=== PATIENT | female | born 1955 | race Caucasian/White ===

== ENCOUNTER 2017-03-06 18:52 | Emergency (ER) | payer OTHER ==
[2017-03-06] MEDS ORDERED: IPRATROPIUM-ALBUTEROL 3 ML NEB INHALATION STA (19:34)
--- NOTE | 2017-03-06 19:34 | ED ---
General Adult HPI - General Chief complaint: Anxiety Stated complaint: Anxiety Time Seen by Provider: 03/06/17 19:19 Source: patient Mode of arrival: EMS Limitations: no limitations - History of Present Illness Initial comments: The patient is a 61-year-old female who presents to the ED with a chief complaint of shortness of breath. Patient states that she's been having numerous episodes of shortness of breath over the course the past 2 days. Patient states that these episodes have been random in timing. She states that they have been relatively persistent. Patient denies any fevers or chills but states that she has felt somewhat clammy. Patient denies any cough. She does note that she has an extensive history of COPD. She smokes on a daily basis. Patient is not been hospitalized within the past year for exacerbation of COPD. Patient denies any history of PE or DVT. Patient denies any history of cardiac disease. She denies any chest pain. She denies any sick contacts. Denies any international travel or long trips. Patient states that she's been using her albuterol inhaler occasionally while at home, though this does not seem to improve her symptoms. The patient states that aside from her albuterol inhaler, the only medications that she takes are Lexapro and Keflex. She states that she takes the Keflex because she gets frequent skin infections. - Related Data Home Medications Medication Instructions Recorded Confirmed Cephalexin [Keflex] 500 mg PO DAILY PRN 03/06/17 03/06/17 Escitalopram [Lexapro] 5 mg PO DAILY 03/06/17 03/06/17 Previous Rx's Medication Instructions Recorded Azithromycin [Zithromax] 500 mg PO DAILY 5 Days 03/06/17 predniSONE 40 mg PO DAILY #10 tab 03/06/17 Allergies Allergy/AdvReac Type Severity Reaction Status Date / Time iodine Allergy Dyspnea Verified 03/06/17 19:13 aspirin AdvReac Nausea & Verified 03/06/17 19:14 Vomiting & Diarrhea meperidine [From Demerol] AdvReac Nausea & Verified 03/06/17 19:14 Vomiting morphine AdvReac Nausea & Verified 03/06/17 19:14 Vomiting Review of Systems ROS Statement: Those systems with pertinent positive or pertinent negative responses have been documented in the HPI. ROS Other: All systems not noted in ROS Statement are negative. Constitutional: Denies: fever, chills, weakness Eyes: Denies: eye pain ENT: Denies: ear pain, throat pain, dental pain, hearing loss Respiratory: Reports: dyspnea, wheezes. Denies: cough, hemoptysis, stridor Cardiovascular: Denies: chest pain, palpitations, dyspnea on exertion Endocrine: Reports: fatigue Gastrointestinal: Denies: abdominal pain, nausea, vomiting, diarrhea, constipation, melena Genitourinary: Denies: urgency, dysuria, frequency, hematuria Musculoskeletal: Denies: back pain Skin: Denies: rash Neurological: Denies: headache, weakness, numbness, paresthesias, confusion Psychiatric: Denies: anxiety, depression Past Medical History Past Medical History: Asthma History of Any Multi-Drug Resistant Organisms: None Reported Past Surgical History: Section, Joint Replacement Additional Past Surgical History / Comment(s): total hip, Smoking Status: Current every day smoker Past Alcohol Use History: None Reported Past Drug Use History: None Reported General Exam Limitations: no limitations General appearance: alert, in no apparent distress Head exam: Present: atraumatic, normocephalic Eye exam: Present: normal appearance, PERRL, EOMI Pupils: Present: normal accommodation ENT exam: Present: normal exam, normal oropharynx Neck exam: Present: normal inspection, full ROM. Absent: tenderness Respiratory exam: Present: wheezes (trace bilateral wheezes), decreased breath sounds (throughout all santo). Absent: respiratory distress, rales, rhonchi, stridor, chest wall tenderness, accessory muscle use Cardiovascular Exam: Present: regular rate, normal rhythm. Absent: systolic murmur, diastolic murmur, rubs, gallop GI/Abdominal exam: Present: soft. Absent: distended, tenderness Extremities exam: Present: normal inspection, full ROM, normal capillary refill. Absent: pedal edema Neurological exam: Present: alert, oriented X3 Psychiatric exam: Present: normal affect, normal mood Skin exam: Present: warm, dry, intact Course Vital Signs 03/06/17 03/06/17 03/06/17 19:01 20:02 20:10 Temperature 98.0 F Pulse Rate 75 80 80 Respiratory 16 Rate Blood Pressure 136/73 O2 Sat by Pulse 100 Oximetry 03/06/17 22:25 Temperature 98.5 F Pulse Rate 78 Respiratory 20 Rate Blood Pressure 136/78 O2 Sat by Pulse 97 Oximetry EKG Findings - EKG Comments: EKG Findings:: EKG demonstrates normal sinus rhythm with a rate is 62. There are no concerning ST-T changes. The SD and QRS intervals are within normal limits. Medical Decision Making - Medical Decision Making Patient is a 61-year-old female who presents to the ED with a chief complaint of shortness of breath. Patient states that her shortness of breath is periodic in nature. She denies that it is associated with fever or chills. Patient does have an underlying history of COPD. She uses an albuterol inhaler to help with that. Patient also has history of anxiety for which she is on Lexapro chronically. Patient denies any history of DVT or PE. Patient denies any history of swelling of the lower extremities. Patient denies any history of CHF. Denies any history of cardiac disease. Patient has no history of cardiac risk factors including hypertension, hyperlipidemia, diabetes. HEART Score=3 (1 for suspicion, 1 for age, 1 for risk factors). Provide patient with DuoNeb breathing treatment. Check d-dimer to rule out possibility of PE. Chest x-ray. CBC, BMP, Mag. 9:16 PM Updated patient and her significant other of overall findings, including negative d-dimer. Chest x-ray demonstrates evidence of emphysema. Counseled patient that she is suffering from COPD. The patient has been provided with dose of prednisone as well as azithromycin prior to discharge. Will be discharged on Prednisone 40mg PO x 5 days and Azithromycin 500mg qDay x 5 days. Counseled patient to use her albuterol inhaler, 2 puffs every 6 hours when necessary for chest tightness or shortness of breath. I have answered all of the patient's questions to her satisfaction. Encouraged her to follow up with her primary care practitioner for further evaluation including possible PFTs and prescription for nebulizer. I have counseled the patient on smoking cessation. Encouraged her to return to the ED should her symptoms worsen. - Lab Data Result diagrams: 03/06/17 20:00 03/06/17 20:00 Lab Results 03/06/17 03/06/17 03/06/17 Range/Units 20:00 20:00 20:00 WBC 7.0 (3.8-10.6) k/uL RBC 4.67 (3.80-5.40) m/uL Hgb 13.7 (11.4-16.0) gm/dL Hct 41.6 (34.0-46.0) % MCV 89.0 (80.0-100.0) fL MCH 29.3 (25.0-35.0) pg MCHC 32.9 (31.0-37.0) g/dL RDW 12.7 (11.5-15.5) % Plt Count 248 (150-450) k/uL Neutrophils % 61 % Lymphocytes % 31 % Monocytes % 4 % Eosinophils % 1 % Basophils % 0 % Neutrophils # 4.3 (1.3-7.7) k/uL Lymphocytes # 2.2 (1.0-4.8) k/uL Monocytes # 0.3 (0-1.0) k/uL Eosinophils # 0.1 (0-0.7) k/uL Basophils # 0.0 (0-0.2) k/uL D-Dimer 0.58 (<0.60) mg/L FEU Sodium 139 (137-145) mmol/L Potassium 4.4 (3.5-5.1) mmol/L Chloride 104 (98-107) mmol/L Carbon Dioxide 28 (22-30) mmol/L Anion Gap 7 mmol/L BUN 17 (7-17) mg/dL Creatinine 0.69 (0.52-1.04) mg/dL Est GFR (MDRD) Af Amer >60 (>60 ml/min/1.73 sqM) Est GFR (MDRD) Non-Af >60 (>60 ml/min/1.73 sqM) Glucose 102 H (74-99) mg/dL Calcium 9.9 (8.4-10.2) mg/dL Magnesium 2.1 (1.6-2.3) mg/dL Troponin I (0.000-0.034) ng/mL NT-Pro-B Natriuret Pep pg/mL Urine Color Urine Appearance (Clear) Urine pH (5.0-8.0) Ur Specific [place] (1.001-1.035) Urine Protein (Negative) Urine Glucose (UA) (Negative) Urine Ketones (Negative) Urine Blood (Negative) Urine Nitrite (Negative) Urine Bilirubin (Negative) Urine Urobilinogen (<2.0) mg/dL Ur Leukocyte Esterase (Negative) 03/06/17 03/06/17 03/06/17 Range/Units 20:00 20:00 20:00 WBC (3.8-10.6) k/uL RBC (3.80-5.40) m/uL Hgb (11.4-16.0) gm/dL Hct (34.0-46.0) % MCV (80.0-100.0) fL MCH (25.0-35.0) pg MCHC (31.0-37.0) g/dL RDW (11.5-15.5) % Plt Count (150-450) k/uL Neutrophils % % Lymphocytes % % Monocytes % % Eosinophils % % Basophils % % Neutrophils # (1.3-7.7) k/uL Lymphocytes # (1.0-4.8) k/uL Monocytes # (0-1.0) k/uL Eosinophils # (0-0.7) k/uL Basophils # (0-0.2) k/uL D-Dimer (<0.60) mg/L FEU Sodium (137-145) mmol/L Potassium (3.5-5.1) mmol/L Chloride (98-107) mmol/L Carbon Dioxide (22-30) mmol/L Anion Gap mmol/L BUN (7-17) mg/dL Creatinine (0.52-1.04) mg/dL Est GFR (MDRD) Af Amer (>60 ml/min/1.73 sqM) Est GFR (MDRD) Non-Af (>60 ml/min/1.73 sqM) Glucose (74-99) mg/dL Calcium (8.4-10.2) mg/dL Magnesium (1.6-2.3) mg/dL Troponin I <0.012 (0.000-0.034) ng/mL NT-Pro-B Natriuret Pep 158 pg/mL Urine Color Colorless Urine Appearance Clear (Clear) Urine pH 5.5 (5.0-8.0) Ur Specific [place] 1.003 (1.001-1.035) Urine Protein Negative (Negative) Urine Glucose (UA) Negative (Negative) Urine Ketones Negative (Negative) Urine Blood Negative (Negative) Urine Nitrite Negative (Negative) Urine Bilirubin Negative (Negative) Urine Urobilinogen <2.0 (<2.0) mg/dL Ur Leukocyte Esterase Negative (Negative) Disposition Clinical Impression: Acute exacerbation of chronic obstructive pulmonary disease (COPD) Disposition: HOME SELF-CARE Instructions: Emphysema (ED), COPD (Chronic Obstructive Pulmonary Disease) (ED) Additional Instructions: Please return to the ED should you have worsening shortness of breath while at home despite the medication provided to you today. Please use your Albuterol inhaler every 6 hours as needed should you have shortness of breath. Prescriptions: Azithromycin [Zithromax] 500 mg PO DAILY 5 Days predniSONE 40 mg PO DAILY #10 tab Referrals: Harish Zavaleta MD [Primary Care Provider] - 03/13/17 (Please follow up with Dr. Zavaleta within the next week to ensure that your symptoms are improving and to see whether you might be able to get a prescription for a nebulizer to use at home) Time of Disposition: 21:16
[2017-03-06 20:15] LABS: Appearance,Urine Clear (Clear); Bilirubin,Urine Negative (Negative); Glucose,Urine (UA) Negative (Negative); Ketones,Urine Negative (Negative); Leukocyte Esterase,Urine Negative (Negative); Nitrite,Urine Negative (Negative); PH, Urine 5.5 (5.0-8.0); Protein,Urine Negative (Negative); Specific Gravity,Urine 1.003 (1.001-1.035); UA Billing (MACRO vs. MICRO) CHEM; Urobilinogen,Urine <2.0 mg/dL (<2.0)
[2017-03-06 20:16] LABS: Basophils % (A) 0 %; CH 29.5; CHCM 33.2; Eosinophils # (A) 0.1 k/uL (0-0.7); Eosinophils % (A) 1 %; HCT 41.6 % (34.0-46.0); HDW 2.32; HGB 13.7 gm/dL (11.4-16.0); Luc # (Auto) 0.15; Luc % (Auto) 2; Lymphocytes # (A) 2.2 k/uL (1.0-4.8); Lymphocytes % (A) 31 %; MCH 29.3 pg (25.0-35.0); MCHC 32.9 g/dL (31.0-37.0); Mean Platelet Volume 7.2; Monocytes # (A) 0.3 k/uL (0-1.0); Monocytes % (A) 4 %; Neutrophils # (A) 4.3 k/uL (1.3-7.7); Neutrophils % (A) 61 %; RBC 4.67 m/uL (3.80-5.40); RDW 12.7 % (11.5-15.5); WBC (Perox) 7.11
--- NOTE | 2017-03-06 20:18 | XR ---
EXAMINATION TYPE: XR chest 2V DATE OF EXAM: 03/06/2017 7:50 PM COMPARISON: NONE HISTORY: History of asthma presents with shortness of breath. TECHNIQUE: Frontal and lateral views of the chest are obtained. FINDINGS: Chronic emphysematous change with upper lung scarring is felt present. There is no focal a ir space opacity, pleural effusion, or pneumothorax seen. The cardiac silhouette size is within norm al limits. The osseous structures are somewhat demineralized. IMPRESSION: Chronic emphysematous change without suspicious acute pulmonary process.
[2017-03-06 20:36] LABS: Anion Gap 7 mmol/L; Blood Urea Nitrogen 17 mg/dL (7-17); Calcium 9.9 mg/dL (8.4-10.2); Carbon Dioxide 28 mmol/L (22-30); Chloride 104 mmol/L (98-107); Glucose 102 mg/dL (74-99); Magnesium 2.1 mg/dL (1.6-2.3); Non-African American GFR(MDRD) >60 (>60 ml/min/1.73 sqM); Potassium 4.4 mmol/L (3.5-5.1); Sodium 139 mmol/L (137-145)
[2017-03-06] MEDS ORDERED: predniSONE 20 MG TAB PO STA (20:53)
[2017-03-06] MEDS ORDERED: AZITHROMYCIN 500 MG TAB PO STA (20:53)
[2017-03-06 22:26] VITALS: BP 136/78; PULSE 78; RESP 20; TEMP 98.5
== END 2017-03-06 22:26 | disposition home or self-care (01) ==
LOC: EC 18:52
DX: J44.1 Chronic obstructive pulmonary disease with (acute) exacerbation (principal); F41.9 Anxiety disorder, unspecified
CPT/HCPCS: 36415; 94640; 93005; 85379; 83880; 80048; 83735; 84484; 85025; 81003; 71020; 99284; J7512

== ENCOUNTER → 2017-06-13 | Outpatient (CLI) | payer OTHER ==
--- NOTE | 2017-06-13 15:05 | CT ---
EXAMINATION TYPE: CT brain wo con DATE OF EXAM: 06/13/2017 COMPARISON: NONE HISTORY: Visual disturbance x2 weeks. CT DLP: 1058 mGycm Automated exposure control for dose reduction was used. FINDINGS: Ventricular system is midline without displacement. Calvarium intact. No acute hemorrhage or mass effect. IMPRESSION: NO ACUTE PROCESS IF SYMPTOMS THAN MRI WOULD BE RECOMMENDED..
--- NOTE | 2017-06-13 15:44 | US ---
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 May 03-- double vision in right eye, no htn EXAM MEASUREMENTS: RIGHT: Peak Systolic Velocity (PSV) cm/sec ----- Right CCA: 82.0 ----- Right ICA: 82.3 ----- Right ECA: 84.9 ICA/CCA ratio: 1.0 RIGHT: End Diastole cm/sec ----- Right CCA: 29.2 ----- Right ICA: 30.7 ----- Right ECA: 15.0 LEFT: Peak Systolic Velocity (PSV) cm/sec ----- Left CCA: 89.7 ----- Left ICA: 81.2 ----- Left ECA: 65.8 ICA/CCA ratio: 0.9 LEFT: End Diastole cm/sec ----- Left CCA: 31.4 ----- Left ICA: 35.1 ----- Left ECA: 15.3 VERTEBRALS (direction of flow): Right Vertebral: Antegrade Left Vertebral: Antegrade No significant stenosis or elevated velocities. Plaque seen in anterior left bulb. Bilateral wall th ickening. Grayscale, color Doppler, spectral Doppler imaging the carotid arteries. IMPRESSION: No hemodynamic significant stenosis of the proximal internal carotid arteries bilaterall y by Doppler criteria, an indirect measurement of carotid stenosis
== END | disposition home or self-care (01) ==
LOC: RADCTMAIN 14:35
PROVIDERS: ATTEND Family Medicine
DX: I63.9 Cerebral infarction, unspecified (principal); H49.20 Sixth [abducent] nerve palsy, unspecified eye
CPT/HCPCS: 70450; 93880

== ENCOUNTER 2018-08-22 06:03 | Day surgery (SDC) | payer OTHER ==
[2018-08-20 14:05] VITALS: BMI 19.3
[2018-08-22] MEDS ORDERED: DEXAMETHASONE SOD PHOSPHATE 10 MG/ML 1 ML VIAL IV ONE (06:18)
[2018-08-22] MEDS ORDERED: ONDANSETRON 4 MG/2 ML VIAL IVP ONE (06:18)
[2018-08-22] MEDS ORDERED: SCOPOLAMINE 1.5MG/72HR PATCH TRANSDERM ONE (06:18)
[2018-08-22] MEDS ORDERED: LIDOCAINE 1% 20 ML VIAL (10MG/ML) FOR IV START INTRADERMA PRN (06:18)
[2018-08-22] MEDS ORDERED: LACTATED RINGERS 1,000 ML IV SCH (06:30)
[2018-08-22 07:12] VITALS: TEMP 97.8
[2018-08-22] MEDS ORDERED: LIDOCAINE 1% INJ 10MG/ML (20 ML MDV) ONE (07:45)
[2018-08-22] MEDS ORDERED: PROPOFOL 10 MG/ML 20 ML VIAL IV ONE (07:45)
--- NOTE | 2018-08-22 07:47 | P.GSHP ---
History of Present Illness H&P Date: 08/22/18 Chief Complaint: Constipation This a 62-year-old female referred from Dr. Zavaleta. Patient's had complaints of constipation. She presents today for colonoscopy. Past Medical History Past Medical History: Asthma History of Any Multi-Drug Resistant Organisms: None Reported Past Surgical History: Appendectomy, Section, Joint Replacement Additional Past Surgical History / Comment(s): bilateral total hip, ganglion cysts from wrist; benign tumor outside uterus removed; Past Anesthesia/Blood Transfusion Reactions: Postoperative Nausea & Vomiting ( PONV) Smoking Status: Current every day smoker - Past Family History Mother Family Medical History: No Reported History Medications and Allergies Home Medications Medication Instructions Recorded Confirmed Type Escitalopram [Lexapro] 5 mg PO DAILY 08/20/18 08/22/18 History Nicotine 21Mg/24Hr Patch [Habitrol 1 each TRANSDERM DAILY 08/20/18 08/22/18 History 21Mg/24Hr Patch] Albuterol Inhaler [Ventolin Hfa 1 - 2 puff INHALATION RT-Q6H PRN 08/22/18 History Inhaler] Allergies Allergy/AdvReac Type Severity Reaction Status Date / Time iodine Allergy Dyspnea Verified 03/06/17 19:13 aspirin AdvReac Nausea & Verified 03/06/17 19:14 Vomiting & Diarrhea latex AdvReac Nausea & Verified 08/20/18 13:59 Vomiting meperidine [From Demerol] AdvReac Nausea & Verified 03/06/17 19:14 Vomiting morphine AdvReac Nausea & Verified 03/06/17 19:14 Vomiting Surgical - Exam Vital Signs Temp Pulse Resp BP Pulse Ox 97.8 F 56 L 14 162/81 99 08/22/18 07:11 08/22/18 07:11 08/22/18 07:11 08/22/18 07:11 08/22/18 07:11 - General well developed, no distress - Eyes PERRL - ENT normal pinna - Neck no masses - Respiratory normal expansion - Cardiovascular Rhythm: regular - Abdomen Abdomen: soft, non tender Assessment and Plan Assessment: Constipation. We will perform colonoscopy
--- NOTE | 2018-08-22 07:59 | P.OP ---
Date of Procedure: 08/22/18 Preoperative Diagnosis: Constipation Postoperative Diagnosis: Constipation Procedure(s) Performed: Sigmoidoscopy Anesthesia: MAC Surgeon: Rivas Maharaj Pathology: none sent Condition: stable Disposition: PACU Description of Procedure: The patient's placed on the endoscopy table in the lateral position. She received IV sedation. Digital rectal exam was performed which revealed a large amount stool in the rectal vault. The flexible colonoscope was then placed patient anus and passed into the sigmoid colon. The sigmoid colon was completely full of stool. At this point scope withdrawn. There was no obvious abnormalities. Due to the patient's poor prep she will be reprepped and brought back for colonoscopy tomorrow.
[2018-08-22 08:28] VITALS: BP 131/82; PULSE 59; RESP 16
== END 2018-08-22 08:48 | disposition home or self-care (01) ==
LOC: ORWHC2ENDO 06:03
PROVIDERS: ATTEND Surgery
DX: K59.00 Constipation, unspecified (principal); J44.9 Chronic obstructive pulmonary disease, unspecified; F17.200 Nicotine dependence, unspecified, uncomplicated; Z88.6 Allergy status to analgesic agent; Z88.5 Allergy status to narcotic agent; Z91.048 Other nonmedicinal substance allergy status; Z79.899 Other long term (current) drug therapy
CPT/HCPCS: 45330; J2001; J2704

== ENCOUNTER → 2018-08-23 | Day surgery (SDC) | payer OTHER ==
[2018-08-22 08:47] VITALS: BMI 19.1
[~2018-08-23] MED LIST: LACTATED RINGERS 1,000 ML IV SCH; LIDOCAINE 1% INJ 10MG/ML (20 ML MDV) ONE; PROPOFOL 10 MG/ML 20 ML VIAL IV ONE
[2018-08-23 12:46] VITALS: RESP 16; TEMP 98
--- NOTE | 2018-08-23 14:53 | P.GSHP ---
History of Present Illness H&P Date: 08/23/18 Chief Complaint: constipation this is a 62-year-old female who's had extensive problems with constipation. Patient presents today for colonoscopy. Past Medical History Past Medical History: Asthma History of Any Multi-Drug Resistant Organisms: None Reported Past Surgical History: Appendectomy, Section, Joint Replacement Additional Past Surgical History / Comment(s): bilateral total hip, ganglion cysts from wrist; benign tumor outside uterus removed; Past Anesthesia/Blood Transfusion Reactions: Postoperative Nausea & Vomiting ( PONV) Smoking Status: Current every day smoker - Past Family History Mother Family Medical History: No Reported History Medications and Allergies Home Medications Medication Instructions Recorded Confirmed Type Escitalopram [Lexapro] 5 mg PO DAILY 08/20/18 08/23/18 History Nicotine 21Mg/24Hr Patch [Habitrol 1 each TRANSDERM DAILY 08/20/18 08/23/18 History 21Mg/24Hr Patch] Albuterol Inhaler [Ventolin Hfa 1 - 2 puff INHALATION RT-Q6H PRN 08/22/18 History Inhaler] Allergies Allergy/AdvReac Type Severity Reaction Status Date / Time iodine Allergy Dyspnea Verified 08/23/18 12:34 aspirin AdvReac Nausea & Verified 08/23/18 12:34 Vomiting & Diarrhea latex AdvReac Nausea & Verified 08/23/18 12:34 Vomiting meperidine [From Demerol] AdvReac Nausea & Verified 08/23/18 12:34 Vomiting morphine AdvReac Nausea & Verified 08/23/18 12:34 Vomiting Surgical - Exam Vital Signs Temp Pulse Resp BP Pulse Ox 98.0 F 62 16 144/82 100 08/23/18 12:45 08/23/18 12:45 08/23/18 12:45 08/23/18 12:45 08/23/18 12:45 - General well developed, no distress - Eyes PERRL - ENT normal pinna - Neck no masses - Respiratory normal expansion - Cardiovascular Rhythm: regular - Abdomen Abdomen: soft, non tender Assessment and Plan Assessment: we will perform colonoscopy
--- NOTE | 2018-08-23 15:00 | P.OP ---
Date of Procedure: 08/23/18 Preoperative Diagnosis: constipation Postoperative Diagnosis: constipation Procedure(s) Performed: colonoscopy Anesthesia: MAC Surgeon: Rivas Maharaj Pathology: none sent Condition: stable Disposition: PACU Description of Procedure: the patient's placed on the endoscopy table in the lateral position. She received IV sedation. Digital rectal exam is performed which revealed stool in the rectal vault. The flexible colonoscope was then placed patient anus and passed throughout the colon. Scope was placed into the distal transverse colon. There was a large amount of stool. Patient had significant stool burden. The scope was passed beyond this. Scope was withdrawn. In the descending colon was a few scattered diverticula. Scope was then brought back the rectum this appeared normal. Scope withdrawn for patient.
[2018-08-23 15:14] VITALS: BP 111/65; PULSE 77
--- NOTE | 2018-08-28 08:47 | CDI ---
Date: 08/28/18 CDS/Chemical Recovery Operator Name: Roxanna Rowe Phone: If any questions, call Leilani Piña Risk Intern at [phone] Patient Name: Yu Dewitt Admit Date: 08/23/18 Discharge Date: 08/23/18 ATTENTION: The [facility] Coding Staff appreciate your assistance in clarifying documentation. Please respond to the clarification below the line at the bottom and electronically sign. The [facility] Coding staff will review the response and follow-up if needed. Please note: Queries are made part of the Legal Health Record. If you have any questions, please contact the Risk Intern. Dear Dr. Maharaj, Please provide clarification as to the extent of the procedure performed. The operative report states that the scope was placed into the distal transverse colon and there was large amounts of stool. The scope was then passed beyond this point. But the operative report does not state to what extent beyond the transverse colon. Thank you for your kind consideration. The scope was placed into the proximal transverse colon before it was withdrawn. [facility]
== END ==
LOC: ORWHC2ENDO 11:56
PROVIDERS: ATTEND Surgery
DX: K57.30 Diverticulosis of large intestine without perforation or abscess without bleeding (principal); J45.909 Unspecified asthma, uncomplicated; F17.210 Nicotine dependence, cigarettes, uncomplicated; Z79.899 Other long term (current) drug therapy; Z88.6 Allergy status to analgesic agent; Z91.040 Latex allergy status; Z88.5 Allergy status to narcotic agent; Z91.048 Other nonmedicinal substance allergy status; Z53.8 Procedure and treatment not carried out for other reasons
CPT/HCPCS: 45378; J2001; J2704

== ENCOUNTER → 2019-02-07 | Outpatient (CLI) | payer OTHER ==
--- NOTE | 2019-02-07 12:44 | US ---
EXAMINATION TYPE: US abdomen complete DATE OF EXAM: 02/07/2019 COMPARISON: NONE CLINICAL HISTORY: R10.11 RUQ Abdominal pain. RUQ pain, loss of appetite, nausea EXAM MEASUREMENTS: Liver Length: 15.9 cm Gallbladder Wall: 0.2 cm CBD: 0.4 cm Spleen: 9.2 cm Right Kidney: 12.2 x 3.5 x 4.9 cm Left Kidney: 11.7 x 4.5 x 3.9 cm Pancreas: visualized portions appear wnl Liver: wnl Gallbladder: no evidence of stones Evidence for sonographic Drummond's sign: no CBD: wnl Spleen: wnl Right Kidney: no evidence of hydronephrosis Left Kidney: no evidence of hydronephrosis Upper IVC: wnl Abd Aorta: Atheromatous changes noted and there is no aneurysm The liver is homogenous. The intrahepatic portion of the IVC and proximal abdominal aorta are within normal limits. There is no evidence of cholelithiasis. Common bile duct is unremarkable. The visu alized portions of the pancreas are homogenous. The spleen is unremarkable. Kidneys are symmetric a nd free of hydronephrosis. No renal lesions are seen. IMPRESSION: No significant abnormality is evident
== END | disposition home or self-care (01) ==
LOC: RADUSWWP 08:51
PROVIDERS: ATTEND Family Medicine
DX: R10.11 Right upper quadrant pain (principal)
CPT/HCPCS: 76700

== ENCOUNTER → 2024-02-29 | Outpatient (CLI) | payer MEDICARE, OTHER ==
--- NOTE | 2024-02-29 19:33 | CA ---
Transthoracic Echo Report Name: Yu Dewitt Age: 68 Gender: F : 1955 Exam Date: 02/29/2024 17:58 Exam Location: [place] [facility] Ht (in): 65 Wt (lb): 112 Ordering Physician: Albert Hutchinson MD Attending/Referring Phys: Albert Hutchinson MD Store Person Procedure CPT: Indications: I21.9 ACUTE MYOCARDIAL INFARCTION, UNSPECIFIED Cardiac Hx: Technical Quality: Good Contrast 1: Total Dose (mL): Contrast 2: Total Dose (mL): MEASUREMENTS (Male / Female) Normal Values 2D ECHO LV Diastolic Diameter PLAX 4.5 cm 4.2 - 5.9 / 3.9 - 5.3 cm LV Systolic Diameter PLAX 3.0 cm IVS Diastolic Thickness 0.6 cm 0.6 - 1.0 / 0.6 - 0.9 cm LVPW Diastolic Thickness 0.7 cm 0.6 - 1.0 / 0.6 - 0.9 cm LV Relative Wall Thickness 0.3 RV Internal Dim ED PLAX 2.9 cm LVOT Diameter 2.1 cm Aortic Root Diameter 3.2 cm LV Diastolic Volume MOD BP 67.5 cm??? 67 - 155 / 56 - 104 cm??? LV Systolic Volume MOD BP 28.2 cm??? 22 - 58 / 19 - 49 cm??? LV Ejection Fraction MOD BP 58.2 % >= 55 % LV Cardiac Index MOD BP 2015.8 cm???/min???m??? LV Diastolic Volume MOD 4C 69.8 cm??? LV Systolic Volume MOD 4C 35.0 cm??? LV Ejection Fraction MOD 4C 49.8 % LV Cardiac Index MOD 4C 1785.9 cm???/min???m??? LV Diastolic Length 4C 7.0 cm LV Systolic Length 4C 5.9 cm LV Diastolic Volume MOD 2C 64.3 cm??? LV Systolic Volume MOD 2C 20.7 cm??? LV Ejection Fraction MOD 2C 67.8 % LV Cardiac Index MOD 2C 2240.5 cm???/min???m??? LV Diastolic Length 2C 6.9 cm LV Systolic Length 2C 5.3 cm DOPPLER AV Peak Velocity 118.1 cm/s AV Peak Gradient 5.6 mmHg AV Mean Velocity 80.8 cm/s AV Mean Gradient 2.9 mmHg AV Velocity Time Integral 22.7 cm LVOT Peak Velocity 89.9 cm/s LVOT Peak Gradient 3.2 mmHg LVOT Velocity Time Integral 17.0 cm LVOT Stroke Volume 57.2 cm??? LVOT Stroke Volume Index 37.0 ml/m??? LVOT Cardiac Index 2936.5 cm???/min???m??? AV Area Cont Eq vti 2.5 cm??? AV Area Cont Eq pk 2.6 cm??? Mitral E Point Velocity 69.0 cm/s Mitral A Point Velocity 66.4 cm/s Mitral E to A Ratio 1.0 MV Deceleration Time 207.4 ms MV E' Velocity 7.3 cm/s Mitral E to MV E' Ratio 9.5 TR Peak Velocity 217.7 cm/s TR Peak Gradient 18.9 mmHg Right Ventricular Systolic Press 24.0 mmHg PV Peak Velocity 78.5 cm/s PV Peak Gradient 2.5 mmHg FINDINGS Left Ventricle Left ventricular ejection fraction is estimated at 55-60 %. Left ventricular cavity size normal. Left ventricular wall thickness normal. No obvious regional wall motion abnormalities. Right Ventricle Normal right ventricular size and function. Right ventricular systolic pressure within normal limits. Right Atrium Normal right atrial size. Left Atrium Normal left atrial size. Mitral Valve Structurally normal mitral valve. No evidence for mitral valve prolapse. No mitral stenosis. Trace mitral regurgitation. Aortic Valve Trileaflet aortic valve. No aortic valve stenosis or regurgitation. Tricuspid Valve Structurally normal tricuspid valve. No tricuspid stenosis. Mild to moderate tricuspid regurgitation. Pulmonic Valve Structurally normal pulmonic valve. No pulmonic stenosis. Trace pulmonic regurgitation. Pericardium No pericardial effusion. Aorta Aortic annulus normal. Ascending aorta not well visualized. CONCLUSIONS Preserved LV size and systolic function Previewed by: Dr. Willie Willis MD (Electronically Signed) Final Date: 29 February 2024 19:32
== END | disposition home or self-care (01) ==
LOC: RADECHMAIN 17:52
PROVIDERS: ATTEND Family Medicine
DX: I21.9 Acute myocardial infarction, unspecified (principal)
CPT/HCPCS: 93306

== ENCOUNTER 2024-03-20 15:05 | Emergency (ER) | payer MEDICARE, OTHER ==
--- NOTE | 2024-03-20 15:52 | ED ---
General Adult HPI - General Chief complaint: ENT Stated complaint: L facial pain Time Seen by Provider: 03/20/24 15:15 Source: EMS Mode of arrival: EMS Limitations: no limitations - History of Present Illness Initial comments: Dictation was produced using [employer] dictation software. please excuse any grammatical, word or spelling errors. Chief Complaint: 68-year-old female presents with left neck pain History of Present Illness: Patient 68-year-old female she presents to the emergency department with left neck pain. Patient states she does have a during eating. States that she went to the dentist last month for cleaning. She does have a history of poor dentition. Patient states that her pain is mostly noted when she is eating. She states that the pain is to her lower left jaw feels like it radiates down her neck and up towards her periauricular area. Patient states that the pain is so severe that she is having difficulty eating. Patient Nuys any fever, chills or night sweats. The ROS documented in this emergency department record has been reviewed and confirmed by me. Those systems with pertinent positive or negative responses have been documented in the HPI. All other systems are other negative and/or noncontributory. - Related Data Home Medications Medication Instructions Recorded Confirmed Escitalopram [Lexapro] 5 mg PO DAILY 08/20/18 08/23/18 Nicotine 21Mg/24Hr Patch [Habitrol 1 each TRANSDERM DAILY 08/20/18 08/23/18 21Mg/24Hr Patch] Albuterol Inhaler [Ventolin Hfa 1 - 2 puff INHALATION RT-Q6H PRN 08/22/18 08/23/18 Inhaler] Previous Rx's Medication Instructions Recorded Cephalexin [Keflex] 500 mg PO Q6HR 10 Days #40 cap 03/20/24 Allergies Allergy/AdvReac Type Severity Reaction Status Date / Time iodine Allergy Dyspnea Verified 03/20/24 15:12 aspirin AdvReac Nausea & Verified 03/20/24 15:12 Vomiting & Diarrhea latex AdvReac Nausea & Verified 03/20/24 15:12 Vomiting meperidine [From Demerol] AdvReac Nausea & Verified 03/20/24 15:12 Vomiting morphine AdvReac Nausea & Verified 03/20/24 15:12 Vomiting Review of Systems ROS Statement: Those systems with pertinent positive or pertinent negative responses have been documented in the HPI. ROS Other: All systems not noted in ROS Statement are negative. Past Medical History Past Medical History: Asthma History of Any Multi-Drug Resistant Organisms: None Reported Past Surgical History: Appendectomy, Section, Joint Replacement Additional Past Surgical History / Comment(s): bilateral total hip, ganglion cysts from wrist; benign tumor outside uterus removed; Past Anesthesia/Blood Transfusion Reactions: Postoperative Nausea & Vomiting (PONV) Past Psychological History: Depression Smoking Status: Former smoker Past Alcohol Use History: None Reported Past Drug Use History: None Reported - Past Family History Mother Family Medical History: No Reported History General Exam - General Exam Comments Initial Comments: General: Well-appearing, nontoxic, no acute distress. Head: Normocephalic, atraumatic Neck: Significant swelling in the left submandibular space at the area of the angle of the mandible, exquisitely tender to palpation. No lymphadenopathy to the lower neck or supratentorial space Eyes: PERRLA, EOMI ENT: Airway patent Chest: Nonlabored breathing Skin: No visual rash, normal skin tone Neuro: Alert and oriented 3 Musculoskeletal: No gross abnormalities Limitations: no limitations Course Vital Signs 03/20/24 15:09 Temperature 98.3 F Pulse Rate 86 Respiratory 18 Rate Blood Pressure 187/96 O2 Sat by Pulse 98 Oximetry Medical Decision Making - Medical Decision Making Was pt. sent in by a medical professional or institution ([facility]ons, SHADING PAINTER, urgent care, hospital, or custodial...) When possible be specific @ -No Did you speak to anyone other than the patient for history (EMS, parent, family, police, friend...)? What history was obtained from this source @ -No Did you review nursing and triage notes (agree or disagree)? Why? @ -I reviewed and agree with nursing and triage notes Were old charts reviewed (outside hosp., previous admission, EMS record, old EKG , old radiological studies, urgent care reports/EKG's, custodial records)? Report findings @ -No old charts were reviewed Differential Diagnosis (chest pain, altered mental status, abdominal pain women, abdominal pain men, vaginal bleeding, musculoskeletal, weakness, fever, dyspnea, syncope, headache, dizziness, GI bleed, back pain, seizure, CVA, palpatations, mental health)? @ -Lymphadenopathy, dental abscess, mandibular fracture EKG interpreted by me (3pts min.). @ -None done X-rays interpreted by me (1pt min.). @ -None done CT interpreted by me (1pt min.). @ -CT soft tissue neck without contrast shows parotitis U/S interpreted by me (1pt. min.). @ -None done What testing was considered but not performed or refused? (CT, X-rays, U/S, labs)? Why? @ -None What meds were considered but not given or refused? Why? @ -None Did you discuss the management of the patient with other professionals (professionals i.e. , PA, SHADING PAINTER, lab, RT, psych nurse, social media marketing specialist, supervisor [employer], teacher, staff air tactical officer, disease case manager rn)? Give summary @ -No Was smoking cessation discussed for >3mins.? @ -No Was critical care preformed (if so, how long)? @ -No Were there social determinants of health that impacted care today? How? (Homelessness, low income, unemployed, alcoholism, drug addiction, tr ansportation, low edu. Level, literacy, decrease access to med. care, fpc, rehab)? @ -No Was there de-escalation of care discussed even if they declined (Discuss DNR or withdrawal of care, Hospice)? DNR status @ -No What co-morbidities impacted this encounter? (DM, HTN, Smoking, COPD, CAD, Cancer, CVA, ARF, Chemo, Hep., AIDS, mental health diagnosis, sleep apnea, morbid obesity)? @ -None Was patient admitted / discharged? Hospital course, mention meds given and route, prescriptions, significant lab abnormalities, going to OR and other pertinent info. @ -68-year-old female presents emergency department with acute onset left jaw pain. Vital signs upon arrival are within acceptable limits. Laboratory evaluation obtained no leukocytosis. Rest of labs within acceptable limits. Soft tissue neck CT shows left parotidis. Patient given prescription for antibiotics and will be discharged. Undiagnosed new problem with uncertain prognosis? @ -No Drug Therapy requiring intensive monitoring for toxicity (Heparin, Nitro, Insulin, Cardizem)? @ -No Were any procedures done? @ -No Diagnosis/symptom? Acute, or Chronic, or Acute on Chronic? Uncomplicated (without systemic symptoms) or Complicated (systemic symptoms)? @ -Parotitis Side effects of treatment? @ -No Exacerbation, Progression, or Severe Exacerbation? @ -No Poses a threat to life or bodily function? How? (Chest pain, [place], [place], pneumonia, PE, COPD, DKA, ARF, appy, cholecystitis, CVA, Diverticulitis, Homicidal, Suicidal, threat to staff... and all critical care pts) @ -No - Lab Data Result diagrams: 03/20/24 16:12 03/20/24 16:12 Lab Results 03/20/24 03/20/24 Range/Units 16:12 16:12 WBC 8.1 (3.8-10.6) k/uL RBC 4.26 (3.80-5.40) m/uL Hgb 12.5 (11.4-16.0) gm/dL Hct 38.3 (34.0-46.0) % MCV 89.9 (80.0-100.0) fL MCH 29.3 (25.0-35.0) pg MCHC 32.6 (31.0-37.0) g/dL RDW 12.7 (11.5-15.5) % Plt Count 296 (150-450) k/uL MPV 7.6 Neutrophils % 66 % Lymphocytes % 24 % Monocytes % 6 % Eosinophils % 2 % Basophils % 0 % Neutrophils # 5.4 (1.3-7.7) k/uL Lymphocytes # 1.9 (1.0-4.8) k/uL Monocytes # 0.5 (0-1.0) k/uL Eosinophils # 0.2 (0-0.7) k/uL Basophils # 0.0 (0-0.2) k/uL Sodium 139 (137-145) mmol/L Potassium 3.9 (3.5-5.1) mmol/L Chloride 105 (98-107) mmol/L Carbon Dioxide 30 (22-30) mmol/L Anion Gap 4 mmol/L BUN 13 (7-17) mg/dL Creatinine 0.55 (0.52-1.04) mg/dL Est GFR (CKD-EPI)AfAm >90 (>60 ml/min/1.73 sqM) Est GFR (CKD-EPI)NonAf >90 (>60 ml/min/1.73 sqM) Glucose 78 (74-99) mg/dL Calcium 9.5 (8.4-10.2) mg/dL Disposition Clinical Impression: Parotitis Disposition: HOME SELF-CARE Condition: Fair Instructions (If sedation given, give patient instructions): Cephalexin (By mouth) Prescriptions: Cephalexin [Keflex] 500 mg PO Q6HR 10 Days #40 cap Is patient prescribed a controlled substance at d/c from ED?: No Referrals: Albert Hutchinson MD [Primary Care Provider] - 1-2 days Time of Disposition: 18:04
[2024-03-20 16:03] VITALS: BP 187/96; PULSE 86; RESP 18; TEMP 98.3
[2024-03-20 16:24] LABS: Basophils % (A) 0 %; Eosinophils # (A) 0.2 k/uL (0-0.7); Eosinophils % (A) 2 %; HCT 38.3 % (34.0-46.0); HGB 12.5 gm/dL (11.4-16.0); Lymphocytes # (A) 1.9 k/uL (1.0-4.8); Lymphocytes % (A) 24 %; MCH 29.3 pg (25.0-35.0); MCHC 32.6 g/dL (31.0-37.0); MCV 89.9 fL (80.0-100.0); Mean Platelet Volume 7.6; Monocytes # (A) 0.5 k/uL (0-1.0); Monocytes % (A) 6 %; Neutrophils # (A) 5.4 k/uL (1.3-7.7); Neutrophils % (A) 66 %; Platelet Count 296 k/uL (150-450); RBC 4.26 m/uL (3.80-5.40); RDW 12.7 % (11.5-15.5); WBC 8.1 k/uL (3.8-10.6)
[2024-03-20] MEDS: methylPREDNISolone SOD SUCCI 125 MG/2 ML VIAL IV STA (16:24)
[2024-03-20] MEDS: diphenhydrAMINE 50 MG/ML 1 ML VIAL IVP STA (16:25)
[2024-03-20] MEDS: FAMOTIDINE 20 MG/2 ML VIAL IV STA (16:27)
[2024-03-20 16:53] LABS: African American GFR (CKD) >90 (>60 ml/min/1.73 sqM); Anion Gap 4 mmol/L; Blood Urea Nitrogen 13 mg/dL (7-17); Calcium 9.5 mg/dL (8.4-10.2); Carbon Dioxide 30 mmol/L (22-30); Chloride 105 mmol/L (98-107); Glucose 78 mg/dL (74-99); Non-African American GFR(CKD) >90 (>60 ml/min/1.73 sqM); Potassium 3.9 mmol/L (3.5-5.1); Sodium 139 mmol/L (137-145)
--- NOTE | 2024-03-20 17:55 | CT ---
EXAMINATION TYPE: CT soft tissue neck wo con DATE OF EXAM: 03/20/2024 HISTORY: mass left side of neck COMPARISON: None CT DLP: 184.2 mGycm. Automated Exposure Control for Dose Reduction was Utilized. TECHNIQUE: Departmental protocol. FINDINGS: Airway: No gross abnormality seen. Parotid/submandibular glands: The ipsilateral left parotid gland is indistinct and is 1.5 times the s ize of the normal right parotid gland, most conspicuous on coronal images, consistent with a clinical diagnosis of left parotiditis, with associated edematous reticulation and thickening of the left tavia tysma and soft tissues just deep to the platysma from the level of the parotid to the level of the hy oid. There is no associated abnormal fluid collection or gas collection. No visualized dilated paroti d duct or sialolith. Lymph nodes: No greater than 1 cm short axis lymph nodes. Osseous Structures: No focal aggressive Other: Prominent emphysematous changes noted. IMPRESSION: Findings consistent with left parotiditis.
== END 2024-03-20 18:15 | disposition home or self-care (01) ==
LOC: EC 15:05
DX: K11.20 Sialoadenitis, unspecified (principal); Z87.891 Personal history of nicotine dependence; Z91.040 Latex allergy status; Z91.041 Radiographic dye allergy status; Z88.8 Allergy status to other drugs, medicaments and biological substances; Z88.5 Allergy status to narcotic agent
CPT/HCPCS: 36415; 80048; 85025; 70490; 99284; 96374; 96375; J1200; J2919

== ENCOUNTER → 2024-08-18 | Outpatient (CLI) | payer MEDICARE, OTHER ==
--- NOTE | 2024-08-19 13:07 | MR ---
EXAMINATION TYPE: MR brain wo con DATE OF EXAM: 08/18/2024 5:18 PM CLINICAL INDICATION: Female, 68 years old with history of R41.3 OTHER AMNESIA; PHH, memory loss, pain on top of head. COMPARISON: 06/13/2017 TECHNIQUE: Multi planar, multi sequence imaging was performed through the brain including: T1, T2, In version recovery, Diffusion weighted imaging, and gradient echo imaging. No gadolinium was given. FINDINGS: Mild cerebral atrophy with proportional dilation of ventricular system. Prominent perivascular spac e in the left basal ganglia. Scattered foci of high T2 signal intensity are seen within the periventr icular white matter. Midline structures show no abnormality. Diffusion-weighted imaging shows no evid ence of restricted diffusion. The susceptibility weighted images do not reveal any evidence for micro -hemorrhage. The bone marrow signal is within normal limits. Paranasal sinuses and mastoid air cells: No significant paranasal sinus disease. Visualized orbits: Orbital contents are intact. IMPRESSION: 1. No evidence of intracranial mass or acute/subacute infarct. 2. Nonspecific white matter changes, likely secondary to small vessel ischemic disease. [facility], , 08/19/2024 1:05 PM
== END | disposition home or self-care (01) ==
LOC: RADMRIMAIN 16:43
PROVIDERS: ATTEND Family Medicine
DX: R41.3 Other amnesia
CPT/HCPCS: 70551

== ENCOUNTER → 2025-02-13 | Outpatient (CLI) | payer MEDICARE, OTHER ==
[2025-02-13 15:18] LABS: Basophils # (A) 0.04 X 10*3/uL (0.00-0.10); Basophils % (A) 0.8 %; Eosinophils # (A) 0.11 X 10*3/uL (0.04-0.35); Eosinophils % (A) 2.1 %; HCT 37.8 % (37.2-46.3); Lymphocytes # (A) 2.16 X 10*3/uL (0.90-5.00); Lymphocytes % (A) 40.8 %; MCH 28.2 pg (27.0-32.0); MCHC 31.7 g/dL (32.0-37.0); MCV 88.9 FL (80.0-97.0); Mean Platelet Volume 10.7 FL (9.5-12.2); Monocytes # (A) 0.46 X 10*3/uL (0.20-1.00); Monocytes % (A) 8.7 %; NRBC Per 100 WBC 0 X 10*3/uL (0.00-0.01); Neutrophils # (A) 2.52 X 10*3/uL (1.80-7.70); Neutrophils % (A) 47.4 %; Platelet Count 269 X 10*3/uL (140-440); RBC 4.25 X 10*6/uL (4.10-5.20); RDW 12.8 % (11.5-14.5)
[2025-02-13 15:54] LABS: T4, Free (Free Thyroxine) 0.8 ng/dL (0.80-1.80)
--- NOTE | 2025-02-15 19:33 | CT ---
EXAMINATION TYPE: CT abdomen wo con DATE OF EXAM: 02/13/2025 9:25 AM COMPARISON: None. CLINICAL INDICATION: Female, 69 years old with history of K31.84 Gastroparesis, Gastroparesis TECHNIQUE: Axial images were obtained from above the diaphragm to the pubic rami in the axial plane a t 5 mm thick sections. Reconstructed images are reviewed on the computer in the coronal plane. CONTRAST: mL of . Study performed with Oral Contrast DLP: 194 mGycm, Automated exposure control for dose reduction was used. FINDINGS: Limited CT sections are obtained the lung bases. The lung bases are clear. Some emphysematous frank e may present. CT ABDOMEN: Oral contrast is within the stomach. Oral contrast extends through the duodenum and proxi mal small bowel loops. No significant retention identified at this time. The stomach appears nondiste nded. Liver: Cyst is present within the lateral right lobe liver. Spleen: Normal Pancreas: Normal Adrenal glands: The adrenal glands are normal. Gallbladder: Punctate calcification is within the dependent gallbladder may be gallbladder wall calci fication are tiny gallstone. Kidneys: No masses are evident. No hydronephrosis is present. No cysts are present. Delayed images were obtained through the kidneys, which remain unremarkable. Aorta: Vascular calcification is within the aorta. Inferior vena cava: Normal. Fecal debris is within the colon. There are loops of bowel distended with oral contrast. Some loops o f bowel lack oral contrast were are incompletely distended limiting their evaluation. IMPRESSION: 1. Stomach appears non-distended and contrast passes into the proximal small bowel loops without sig nificant retention to suggest underlying gastroparesis. [facility], , 02/15/2025 7:30 PM
== END | disposition home or self-care (01) ==
LOC: RADCTMAIN 08:26
PROVIDERS: ATTEND Family Medicine
DX: K31.84 Gastroparesis (principal); E55.9 Vitamin D deficiency, unspecified; I10 Essential (primary) hypertension; Z79.899 Other long term (current) drug therapy
CPT/HCPCS: 36415; 74150; 82306; 82607; 82746; 84439; 84443; 84481; 85025

== ENCOUNTER → 2025-04-30 | Outpatient (CLI) | payer MEDICARE, OTHER ==
--- NOTE | 2025-04-30 11:31 | NM ---
EXAMINATION TYPE: NM hepatobiliary w EF DATE OF EXAM: 04/30/2025 COMPARISON: NONE CLINICAL INDICATION: Female, 69 years old with history of R10.11 RUQ PAIN; TECHNIQUE: After the intravenous administration of 5.22 mCi Tc 99m Mebrofenin hepatobiliary scintigra phy is performed. Immediate images post injection. FINDINGS: There is satisfactory initial accumulation of tracer by the liver. The gallbladder is visualized wit hin 22 minutes. The small bowel activity is noted within 14 minutes. At one hour 8 ounces of oral e nsure plus is given to mimic CCK and gallbladder ejection fraction is calculated at 93 %, elevated ab ove the expected range. IMPRESSION: 1. No scintigraphic evidence for acute/chronic cholecystitis or biliary dyskinesia. 2. Increased gallbladder ejection fraction of 93% may be seen with gallbladder hyperkinesis. [facility], , 04/30/2025 11:28 AM
== END | disposition home or self-care (01) ==
LOC: RADNMMAIN 05:52
PROVIDERS: ATTEND Family Medicine
DX: R10.11 Right upper quadrant pain (principal)
CPT/HCPCS: 78226; A9537

== ENCOUNTER 2025-06-01 08:37 | Day surgery (SDC) | payer MEDICARE, OTHER ==
[~2025-06-01 08:37] MED LIST changes: -LACTATED RINGERS 1,000 ML IV SCH; -LIDOCAINE 1% INJ 10MG/ML (20 ML MDV) ONE; -PROPOFOL 10 MG/ML 20 ML VIAL IV ONE; +fentaNYL (PF) 50 MCG/ML 2 ML AMP IV PRN
[2025-06-01] MEDS: IV FLUID CONTINUATION 1,000 ML IV ONE ×2 (08:55→13:28)
[2025-06-01] MEDS: LACTATED RINGERS 1,000 ML IV SCH (09:18)
[2025-06-01] MEDS: DEXAMETHASONE SOD PHOSPHATE 4 MG/ML 1 ML VIAL IV ONE (09:32)
[2025-06-01] MEDS: ONDANSETRON 4 MG/2 ML VIAL IVP ONE (09:35)
[2025-06-01] MEDS: HEPARIN SODIUM,PORCINE 5,000 UNIT/ML 1 ML VIAL SQ PRN (09:35)
[2025-06-01] MEDS ORDERED: MIDAZOLAM 2 MG/2 ML VIAL ONE (10:12)
[2025-06-01] MEDS ORDERED: NEOSTIGMINE 1 MG/ML 10 ML VIAL ONE (10:12)
[2025-06-01] MEDS ORDERED: PROPOFOL 10 MG/ML 20 ML VIAL IV ONE (10:12)
[2025-06-01] MEDS ORDERED: LIDOCAINE 1% INJ 10MG/ML (20 ML MDV) ONE (10:12)
[2025-06-01] MEDS ORDERED: GLYCOPYRROLATE 0.2 MG/ML 2 ML VIAL ONE (10:12)
[2025-06-01] MEDS ORDERED: fentaNYL (PF) 50 MCG/ML 2 ML AMP ONE (10:12)
[2025-06-01] MEDS ORDERED: KETOROLAC 15 MG/ML 1 ML VIAL ONE (10:12)
[2025-06-01] MEDS ORDERED: ROCURONIUM 10 MG/ML (5 ML VIAL) IV ONE (10:12)
[2025-06-01] MEDS ORDERED: SUCCINYLCHOLINE CHLORIDE 200 MG/10 ML VIAL IV ONE (10:12)
[2025-06-01] MEDS: LIDOCAINE 1%-EPI 1:100,000 20 ML VIAL SQ ONE (10:36)
--- NOTE | 2025-06-01 11:03 | P.OP ---
Date of Procedure: 06/01/25 Preoperative Diagnosis: Cholecystitis Postoperative Diagnosis: Cholecystitis Procedure(s) Performed: Laparoscopic cholecystectomy Anesthesia: AGUSTO Surgeon: Rivas Maharaj Estimated Blood Loss (ml): 5 Pathology: other (Gallbladder) Condition: stable Disposition: PACU Description of Procedure: The patient was placed on the operating table. The patient received a general endotracheal tube anesthesia. The patients abdomen was prepped and draped in the usual sterile fashion. Through an infraumbilical stab incision, the fascia of the anterior abdominal wall was grasped with a pair of Kochers and then the Veress needle was placed in the peritoneal cavity. Position of the Veress needle was confirmed with positive drop test. The abdomen was then insufflated. After adequate insufflation, the 10 mm trocar was placed in the peritoneal cavity. Following this the laparoscope was placed in the peritoneal cavity. The patient was placed in the head-up, right side up position and then a 5 mm trocar was placed in the right lateral and right subcostal position under direct visualization. A 8 mm trocar was placed in the epigastric position. The gallbladder was grasped in the fundus and infundibulum. Traction on the gallbladder was placed in the lateral and the cephalad positions. The triangle of Calot was visualized.. The cystic duct was bluntly dissected until the union of the cystic duct and common bile duct was seen. A critical view of safety was achieved. The cystic duct was then divided and sealed with the Harmonic scissors. A PDS Endoloop was then placed throughout the cystic duct stump. The cystic artery divided and sealed with the Harmonic scissors. The gallbladder was then removed from the liver bed using Harmonic scissors. The gallbladder was then extracted through the epigastric port site. Operative field was checked for any bleeding spots and Harmonic scissors was used to coagulate the liver bed. The abdomen was irrigated. The trocars were removed. The skin was closed using interrupted 3-0 Vicryl suture. Dermabond dressing were applied. The patient tolerated the procedure well.
[2025-06-01 11:08] VITALS: TEMP 96.8
[2025-06-01 11:58] VITALS: RESP 16
[2025-06-01] MEDS: ACETAMINOPHEN TAB 500 MG TAB PO PRN (13:47)
[2025-06-01 14:20] VITALS: BP 168/90; PULSE 55
== END 2025-06-01 14:57 | disposition home or self-care (01) ==
LOC: OR 08:37
PROVIDERS: ATTEND Surgery
DX: K81.1 Chronic cholecystitis (principal); J45.909 Unspecified asthma, uncomplicated; F32.A Depression, unspecified; Z79.899 Other long term (current) drug therapy; Z96.643 Presence of artificial hip joint, bilateral; Z88.6 Allergy status to analgesic agent; Z88.5 Allergy status to narcotic agent; Z88.8 Allergy status to other drugs, medicaments and biological substances
CPT/HCPCS: 47562; 88304; J2250; J0330; J1644; J2710; J2405; J0690; J2003; J3010; J1885; J2704; J1596